=== PATIENT | male | born 1985 | race Asian ===

== ENCOUNTER 2021-12-07 20:38 | Emergency (ER) | payer OTHER ==
[~2021-12-07] VITALS: Ht 172.7 cm; Wt 70.3 kg
--- NOTE | 2021-12-07 22:01 | NUR ---
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
[2021-12-07 22:04] VITALS: BP 135/85
[2021-12-07] MEDS ORDERED: NAPR-1009 PO (22:17)
--- NOTE | 2021-12-07 22:37 | NUR ---
Patient discharged to home in stable condition. Written and verbal after care instructions given. Patient verbalizes understanding of instruction. patient was assisted to his 's car via [place]
== END 2021-12-07 23:12 | disposition home or self-care (01) ==
LOC: ER 20:40
DX: M22.01 Recurrent dislocation of patella, right knee (principal); X58.XXXA Exposure to other specified factors, initial encounter; Y93.75 Activity, martial arts; Y92.89 Other specified places as the place of occurrence of the external cause; Y99.8 Other external cause status